=== PATIENT | female | born 1990 | race Caucasian/White ===

== ENCOUNTER 2016-08-12 12:08 | Emergency (ER) | payer BC, OTHER ==
[2016-08-12 12:23] VITALS: BP 142/88
[2016-08-12] MEDS ORDERED: LORazepam TAB(*) 1 MG PO ONE (13:03)
--- NOTE | 2016-09-23 11:17 | ED ---
Medical Screening - HPI Summary HPI Summary: Patient has a history of bipolar and uses adderall and lamictal. Her insurance recently ran out and she thought she could manage her symptoms without her medication, but has realized this is not the case. Therefore, [facility], which they are working on, but until then she is feeling anxious and unable to find a way to manage her anxiety. She is requesting medication to help decrease her symptoms until she can be fully established with [facility]. She denies SI/HI. - History of Current Complaint Chief Complaint: EDPrescriptionNeeded Stated Complaint: ANXIETY Time Seen by Provider: 08/12/16 12:40 Onset/Duration: Started Days Ago Severity: moderate Associated Signs and Symptoms: Negative PMH/Surg Hx/FS Hx/Imm Hx Psychiatric History: Reports: Hx Anxiety, Hx Bipolar Disorder Infectious Disease History: No Infectious Disease History: Denies: Traveled Outside the [place] in Last 30 Days - Family History Known Family History: Positive: None - Social History Occupation: Employed Part-time Lives: With Family Alcohol Use: Occasionally Substance Use Type: Reports: None Smoking Status (MU): Former Smoker Review of Systems Positive: Anxious All Other Systems Reviewed And Are Negative: Yes Physical Exam Triage Information Reviewed: Yes Vital Signs On Initial Exam: Initial Vitals Temp Pulse Resp BP Pulse Ox 98.3 F 80 20 142/88 98 08/12/16 12:17 08/12/16 12:17 08/12/16 12:17 08/12/16 12:17 08/12/16 12:17 Vital Signs Reviewed: Yes Appearance: Positive: Well-Appearing, No Pain Distress, Well-Nourished Skin: Positive: Warm, Skin Color Reflects Adequate Perfusion, Dry, Soft Head/Face: Positive: Normal Head/Face Inspection Eyes: Positive: EOMI, RC, Conjunctiva Clear ENT: Positive: Hearing grossly normal, Pharynx normal Respiratory/Lung Sounds: Positive: Breath Sounds Present Cardiovascular: Positive: RRR Musculoskeletal: Negative: Edema Left, Edema Right Neurological: Positive: Sensory/Motor Intact, Alert, Oriented to Person Place, Time, NV Bundle Intact Distally, Normal Gait Psychiatric: Positive: Anxious AVPU Assessment: Alert Diagnostics - Vital Signs Vital Signs Temp Pulse Resp BP Pulse Ox 08/12/16 14:27 98.9 F 08/12/16 14:03 18 08/12/16 12:17 98.3 F 80 20 142/88 98 - Laboratory Lab Statement: Any lab studies that have been ordered have been reviewed, and results considered in the medical decision making process. Course/Dx - Course Course Of Treatment: The patient will be provided with a small dose of medication to help with her situation. She understands it is important to follow -up as scheduled with her mental health provider. She has a supportive partner with her. - Diagnoses Provider Diagnoses: Anxiety Discharge - Discharge Plan Condition: Stable Disposition: HOME Prescriptions: hydrOXYzine HCL TAB* [Atarax 25 MG TAB*] 25 mg PO TID PRN #9 tab PRN Reason: Anxiety Patient Education Materials: Anxiety (ED) Referrals: Melonie Stern NP [Primary Care Provider] - Additional Instructions: Please use the medication provided as needed and follow-up with your therapist as scheduled. Return to the emergency department if your symptoms worsen.
== END 2016-08-12 14:27 | disposition home or self-care (01) ==
LOC: ED 12:08
DX: F41.9 Anxiety disorder, unspecified (principal); Z87.891 Personal history of nicotine dependence
CPT/HCPCS: 99282; A9270-GY